=== PATIENT | male | born 1940 | race Caucasian/White ===

== ENCOUNTER → 2024-09-30 | Outpatient (CLI) | payer MEDICARE, SELFPAY ==
--- NOTE | 2024-09-30 14:36 | CT_ITS ---
EXAM: CT LUMBAR SPINE WITH INTRAVENOUS CONTRAST CLINICAL INDICATION: NUMBNESS LOWER EXTREMITIES POST RECENT INJECTION TECHNIQUE: Helically acquired images were obtained of the lumbar spine with intravenous contrast. 2D reformats were reviewed. This CT exam was performed using one or more of the following dose reduction techniques: automated exposure control, adjustment of the mA and/or kV according to patient size, and/or use of iterative reconstruction technique. CONTRAST: IV 100mL Isovue-370 RADIATION DOSE: CTDIvol = 20.25 mGy, DLP = 699.94 mGy-cm COMPARISON: No relevant prior studies available. FINDINGS: VERTEBRAE: Severe burst type fracture of L2 which appears old and healed. There is significant narrowing of the spinal canal at this level from approximately 1.2 cm down to approximately 7 mm.. No acute fracture. No traumatic subluxation. No discrete lytic or blastic abnormality. Normal alignment. Normal curvature. Diffuse demineralization. DISCS/SPINAL CANAL/NEURAL FORAMINA: Chronic degenerative disc disease at L2-L3 with vacuum phenomenon. Other discs show normal height. T12-L1 is unremarkable. L1-L2 shows mild loss of disc height. Bilateral moderate neural foraminal narrowing. L2-L3 shows severe central canal stenosis. There is severe bilateral neural foraminal narrowing worse on the right. L3-L4 shows a broad disc bulge. Moderate central canal stenosis. Moderate bilateral neural foraminal narrowing. L4-L5 shows mild to moderate bilateral neural foraminal narrowing. L5-S1 is unremarkable. VASCULATURE: Marked calcified plaque of the aorta. Marked narrowing of the aortic lumen at the level of the renal arteries. Severe calcified plaque and narrowing of the iliac arteries. LYMPH NODES: Unremarkable. No retroperitoneal adenopathy. CT/Spine Lumbar WITH Contrast IMPRESSION: No definite acute abnormality. Old fracture at L2. Multilevel spinal stenosis and neural foraminal narrowing. Findings most pronounced at L2-L3. Electronically Signed: Mingo Wakefield MD at 17:00 EST ,
[2024-09-30 15:23] LABS: CREATININE FINGERSTICK < 1.0 mg/dL (0.70-1.30); EGFR FINGERSTICK > 60.0000 mL/min (>60)
== END | disposition home or self-care (01) ==
PROVIDERS: PCP Internal Medicine; Referring Provider Clinical Nurse Specialist Adult Health; Visit Provider Clinical Nurse Specialist Adult Health
DX: R20.0 Anesthesia of skin (principal)
CPT/HCPCS: 72132; Q9967

== ENCOUNTER 2024-11-07 10:18 | Emergency (ER) | payer MEDICARE, SELFPAY ==
[2024-11-07 10:19] VITALS: BP 134/89; PULSE 84; RESP 18; TEMP 36.4; O2SAT 98
[2024-11-07 10:21] VITALS: BMI 27.8
--- NOTE | 2024-11-07 10:58 | CT_ITS ---
STUDY: CT BRAIN WITHOUT CONTRAST REASON FOR EXAM: Male, 84 years old. Weakness, falls, lower extremity weakness RADIATION DOSAGE (If Supplied By Facility): CTDIvol = ( 44.99 ) mGy, DLP = ( 829.85 ) mGycm TECHNIQUE: Transaxial CT imaging of the brain was performed without administration of intravenous contrast material. Individualized dose optimization techniques were used for this CT. COMPARISON: No relevant priors. FINDINGS: Normal soft tissue structures. Normal calvarium. There is moderate cerebral atrophy with widening of the extra-axial spaces and ventricular dilatation. There are areas of decreased attenuation within the white matter tracts of the supratentorial brain, consistent with microvascular disease changes. Focal encephalomalacia in the posterior aspect of the right posterior occipital lobe. Normal basal ganglia and thalami. Normal brainstem. Normal cerebellum. There is no intracranial hemorrhage. There are no findings of an acute ischemic infarction. Atherosclerotic calcification of the vertebral arteries as well as the cavernous portions of the internal carotid arteries bilaterally. Normal visualized paranasal sinuses. CT/Brain/Head without Contrast IMPRESSION: Chronic involutional changes of the brain. Electronically Signed: Jacoby Williamson MD at 11:39 EST ,
[2024-11-07] MEDS: fentaNYL 100 MCG/2 ML Ampul 50 MCG IV (11:14)
--- NOTE | 2024-11-07 11:19 | ADU_ITS ---
Reason For Study: BLE PAIN Right Velocities Left Velocities Ext. Iliac Artery, dist = 175.2 cm./sec. Common Femoral Artery, dist = 85.8 cm./sec. Common Femoral Artery, prox = 198.5 cm./sec. Supf. Femoral Artery, prox = 85.8 cm./sec. Supf Femoral Artery, prox = 60.1 cm./sec. Supf. Femoral Artery, mid = 65.0 cm./sec. Supf Femoral Artery, mid = 52.4 cm./sec. Supf. Femoral Artery, dist = 56.4 cm./sec. Supf Femoral Artery, dist. = 45.7 cm./sec. Common Femoral Artery, dist = 85.8 cm./sec. Profunda Femoral Artery = 52.4 cm./sec. Supf. Femoral Artery, prox = 85.8 cm./sec. Popliteal Artery, prox. = 44.5 cm./sec. Supf. Femoral Artery, mid = 65.0 cm./sec. Area of acoustic shadowing noted at prox mid POP ASupf. Femoral Artery, dist = 56.4 cm./sec. Popliteal Artery, prox/mid = 245.3 cm./sec. Profunda Femoral Artery = 73.6 cm./sec. Popliteal Artery, mid = 54.2 cm./sec. Popliteal Artery, proximal, = 56.4 cm./sec. Popliteal Artery, dist = 50.2 cm./sec. Area of Heterogenous irregular plaque noted at Post. Tibial Artery, prox = 41.6 cm./sec. prox/mid POP A Post. Tibial Artery, mid = 40.4 cm./sec. Prox/Mid POP A = 301.7 cm/sec. Post. Tibial Artery, dist = 35.5 cm./sec. Popliteal Artery, mid = 41.8 cm./sec. Peroneal Artery, mid = 18.3 cm./sec. Popliteal Artery, distal = 41.6 cm./sec. Unable to visualize flow in prox and dist Feliciano A Post. Tibial Artery, prox = 40.5 cm./sec. Ant. Tibial Artery, prox = 40.0 cm./sec. Post Tibial Artery, mid = 47.1 cm./sec. Ant. Tibial Artery, mid = 32.2 cm./sec. Post Tibial Artery, dist. = 33.0 cm./sec. Ant. Tibial Artery, dist = 47.0 cm./sec. Unable to visualize prox and dist Feliciano A Rt to LT Fem to Fem BPG noted. Prox anastomosis Peroneal Artery, mid = 62.3 cm./sec. appears to be Rt Dist Iliac A / Prox STRIP PICKER. Distal Ant.Tibial Artery, prox = 25.4 cm./sec. anastomosis appears to be LT STRIP PICKER/Prox SFA. Unable Ant Tibial Artery, mid = 65.1 cm./sec. to visualize flow in Lt Distal Ilac A Ant. Tibial Artery, distal = 12.2 cm./sec. Prox Anastomosis = 156.0 cm/sec Prox Graft = 145.7 cm/sec Mid Graft = 88.6 cm/sec Dist Graft = 78.3 cm/sec Dist Anastomosis = 130.1 cm/sec. Procedure The exam was diagnostic. Exam performed portable in ED. Comments Preliminary report given to [facility] and Dr. Almanza. VL/US Art Duplex Bilat Lower Ext Interpretation Summary Patent left to right femoral-femoral bypass with normal velocities and no evide nce of stenosis. Right popliteal artery with >75% stenosis Left popliteal artery with >75% stenosis. Ordering Physician: Marly Almanza Referring Physician: Phil Campuzano Performed By: Krish Cabrera, RVT
--- NOTE | 2024-11-07 11:19 | ART_ITS ---
Reason For Study: Leg Pain Procedure A bilateral lower extremity continuous wave Doppler with analog waveform analysis and ankle brachial indexes. Left Segmental Pressures Left brachial= 121mmHg. Left posterior tibial artery = 95mmHg. Left dorsalis pedis artery = 83mmHg. Left digit = 56 mmHg. Right Segmental Pressures Right posterior tibial artery = 117mmHg. Right dorsalis pedis artery = 116mmHg. Right digit = 74 mmHg. Indices The right ankle brachial index by the posterior tibial artery is 0.97. The right ankle brachial index by the dorsalis pedis is 0.96. The right digital-brachial index is 0.61. The left ankle brachial index by the posterior tibial artery is 0.79. The left ankle brachial index by the dorsalis pedis is 0.69. The left digital-brachial index is 0.46. VL/Ankle Brachial Index Interpretation Summary Right BERNA 0.97, mild arterial insufficiency. Doppler/PVR waveforms of the right ankle mildly diminished at rest. Left BERNA 0.79, moderate arterial insufficiency. Doppler/PVR waveforms of the le ft ankle moderately diminished at rest. Ordering Physician: Marly Almanza Referring Physician: Phil Campuzano Performed By: Jaz Box RDCS/RVT
--- NOTE | 2024-11-07 11:25 | EX.ED.DYSGE1 ---
HPI History of Present Illness Chief Complaint: Lower Extremity Injury Informant: patient and family Narrative Narrative: Patient is an 84-year-old male with history of peripheral arterial disease, AAA status post presenter, brain aneurysm status post clipping, CABG on chronic aspirin and Plavix therapy as well as spinal stenosis and chronic back pain who follows with [facility] as well as Dr. Whitaker. He is presenting today for worsening leg pain and debility. His daughter notes that over the past 3 months he has went from ambulating without any assistance to needing a walker full-time for ambulation and now had a fall. He states that he does not have significant pain when at rest but when he tries to stand he has pretty severe pain in the both of his legs. Describes it more as a burning pain. He has been following with Dr. Zuluaga at [facility]. He had a CT myelogram this month which did show a large calcium deposit occluding the SMA and spine surgery is more concerned that his pain could be vascular in nature. He has a history of bypass to his legs before by Dr. Whitaker in 2018 at [facility]. He is scheduled to have arterial duplex of his legs this coming Sunday in [place]. He is also scheduled to have an epidural injection of his spine via the [facility] on November 17. Patient continues to get weaker and is having increased pain and his daughter called Dr. Whitaker this morning who suggested he come to the ER for evaluation of his symptoms were this severe. He had a fall 2 mornings ago. He states that he was trying to get into the house and his legs just more than gave out. He states it was a gentle fall he did not hit his head. He did bruise his right arm. He called his daughter who helped him get back up. He has urinary frequency but attributes that to drinking a large amount of caffeine. He denies any sensation of incomplete bladder emptying. He does feel that his arms are starting get a little weaker to now. He denies any bowel or bladder incontinence. Patient does live home alone. [facility] Medical History History of broken leg History of kenney History of vascular disease History of skin cancer History of gastroesophageal reflux (GERD) History of osteoarthritis History of high cholesterol History of hypertension History of heart disease History of carpal tunnel syndrome History of cataract History of blood clots History of back problems History of asthma History of arthritis Home Medications ?Medication ?Instructions ?Recorded ?Last Taken ?Type aspirin 81 mg chewable tablet 81 mg PO DAILY 06/12/24 Unknown History (Aspirin Childrens) cholecalciferol (vitamin D3) 50 50 mcg PO DAILY 06/12/24 Unknown History mcg (2,000 unit) capsule clopidogrel 75 mg tablet (Plavix) 75 mg PO DAILY 06/12/24 Unknown History lansoprazole 30 mg capsule,delayed 30 mg PO QDAY 06/12/24 Unknown History release metoprolol succinate 25 mg 25 mg PO QDAY 06/12/24 Unknown History tablet,extended release 24 hr omega 4-rdb-hvb-fish oil 300 1 cap PO DAILY 06/12/24 Unknown History mg-1,000 mg capsule (Fish Oil) paroxetine HCl 40 mg tablet 40 mg PO QDAY 06/12/24 Unknown History rosuvastatin 40 mg tablet 40 mg PO QDAY 06/12/24 Unknown History oxycodone 5 mg tablet 5 mg PO Q6H PRN pain 3 days #12 11/07/24 Unknown Rx tabs Allergy/AdvReac Type Severity Reaction Status Date / Time lisinopril AdvReac Mild Other Verified 11/07/24 10:21 Family History Father Bleeding disorder Brother Cancer Daughter Asthma Arthritis Surgical History H/O heart bypass surgery History of carpal tunnel surgery of left wrist History of AAA (abdominal aortic aneurysm) repair History of brain surgery Social History Smoking Status: Current every day smoker tobacco type: cigarettes how long ago did patient quit smokin-1/2 pack daily smoking since 17 years old alcohol intake: current substance use type: does not use additional social history: pt takes aspirin daily, denies vaping, denies marrijuana use, denies edibles, denies ibuprofen ROS ROS ED Constitutional Constitutional ED: Denies chills or fever(s) Cardiovascular Cardiovascular: Denies chest pain Respiratory/Chest Respiratory/Chest: Denies cough or dyspnea Gastrointestinal Gastrointestinal: Denies abdominal pain, nausea or vomiting Genitourinary Genitourinary ED: Reports urinary frequency; Denies dysuria Musculoskeletal Musculoskeletal: Reports back pain and other Details: bilateral leg pain- worse with standing/ambulation Integumentary Denies rash Neurologic Neurologic: Reports weakness; Denies paresthesias Psychiatric Psychiatric: Denies anxiety Hematologic/Lymphatic Hematologic/Lymphatic: Denies easy bleeding or easy bruising EXAM Physical Exam Const Vital Signs: 11/07/24 10:19 11/07/24 12:18 Temperature 97.6 F L Temperature Source Oral Pulse Rate 84 74 Respiratory Rate 18 18 Blood Pressure 134/89 H 128/72 H Blood Pressure Mean 104 90 Pulse Ox 98 98 Oxygen Delivery Method Room Air Positive well nourished and well developed General Appearance ED: well developed and NAD HEENT Reports moist mucous membranes Eyes PERRL Neck supple Chest Wall inspection of chest normal and palpation of chest normal Resp normal respiratory effort and clear to auscultation bilaterally Cardio regular rate and regular rhythm GI normal to inspection, nondistended, normoactive bowel sounds and non-tender Palpation: Negative for mass Back/Spine no CVA tenderness Thoracic Spine / Upper Back: Negative for thoracic spinal tenderness or paraspinal muscle tenderness Extremity normal to inspection Extremity Narrative: Negative straight leg test bilaterally. 1+ bilateral radial pulses. Will obtain Doppler for lower extremity pulses of the feet. 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 No drift of the upper extremities. Does have some mild difficulty lifting his legs off the bed but is able to hold them. 5/5 strength with dorsi and plantarflexion. Sensorium / Orientation: alert Psych mental status grossly normal Skin no rashes or lesions noted Skin Narrative: Some scattered ecchymosis over the right forearm that is healing MDM MDM MDM Narrative Medical decision making narrative: Patient is evaluated for this ongoing lower extremity pain and progressive debility. This seems like this more subacute is been progressing over the past few months but is gotten to the point that patient is having hard time ambulating now even with a walker and had a fall 2 days ago. I did speak with vascular surgery PA who recommended ABIs and arterial duplex of the lower extremities. She will come by to see the patient. Will also obtain CT of the brain in case this is more of a central process and basic labs in addition CPK and CRP. Given that he had a recent CT myelogram and the progression of symptoms without any cauda equina symptoms including bowel or bladder incontinence or saddle anesthesia I do not think this is cauda equina or epidural abscess. In addition he had a recent CT myelogram and has been following with spinal surgery. Workup largely normal. He is mildly with hemoglobin 11.8 by do not think it is related to his leg pain today. Does not have a leukocytosis. Kidney function is normal. CK is normal and CRP is negative. Arterial duplex shows some stenosis had the bilateral popliteal but no critical stenosis. Patient evaluated by vascular nurse practitioner. She states that he has bilateral biphasic DP pulses with Doppler. Feels that this could be followed up with outpatient and the pain is not likely related to his peripheral vascular disease. Patient did receive 50 mcg of fentanyl with significant improvement of his pain. Is able to stand without pain now and ambulate with only minimal pain. I will be discharged home with a short course of oxycodone. Will continue to follow-up with spine as well as vascular outpatient. Patient and daughter are in agreement with this. He feels safe going home. Is offered admission if he feels that his pain is too debilitating that he is not safe to go home but at this time declines. Is encouraged to return to the emergency room should he have progression or worsening of his symptoms or no longer feels safe at home. Lab Data Attestation: I reviewed the patient's lab results. Labs: Laboratory Results - last 24 hr 11/07/24 11:05 WBC 10.4 RBC 3.85 L Hgb 11.8 L Hct 35.4 L MCV 91.9 MCH 30.6 MCHC 33.3 RDW Std Deviation 51.8 H RDW Coeff of Kaylen 15.6 H Plt Count 340 MPV 9.1 Immature Gran % (Auto) 1.100 H Neut % (Auto) 61.2 Lymph % (Auto) 26.9 Henry % (Auto) 9.8 Eos % (Auto) 0.5 Baso % (Auto) 0.5 Absolute Neuts (auto) 6.4 Absolute Lymphs (auto) 2.80 Nucleated RBC % 0 PT 13.4 INR 1.0 APTT 20.5 L Sodium 139 Potassium 3.8 Chloride 107 Carbon Dioxide 28.0 Anion Gap 4 L BUN 12 Creatinine 0.69 L Est GFR (MDRD) Af Amer 140 Est GFR (MDRD) Non-Af 116 BUN/Creatinine Ratio 17.3 Glucose 81 Calcium 8.8 Total Creatine Kinase 63 C-React Prot Ext Range < 2.90 Radiography Diagnostic Testing: Clinical Impression(s) from Imaging Studies Brain CT 11/07/24 10:58 IMPRESSION: Chronic involutional changes of the brain. Electronically Signed: Jacoby Williamson MD at 11:39 EST , Management Discussion w/another healthcare provider: [employer] Research Manager Discharge Plan Triage Chief Complaint: Lower Extremity Injury ED Provider: Marly Almanza Dx/Rx/DC Orders Clinical Impression: Lower extremity pain, Debility Instructions: ED Pain, Acute, Uncertain Cause, ED Weakness (Uncertain Cause) Prescriptions: New oxycodone 5 mg tablet 5 mg PO Q6H PRN (Reason: pain) 3 Days Qty: 12 0RF No Action metoprolol succinate 25 mg tablet extended release 24 hr 25 mg PO QDAY paroxetine HCl 40 mg tablet 40 mg PO QDAY lansoprazole 30 mg capsule,delayed release(DR/EC) 30 mg PO QDAY rosuvastatin 40 mg tablet 40 mg PO QDAY clopidogrel [Plavix] 75 mg tablet 75 mg PO DAILY cholecalciferol (vitamin D3) 50 mcg (2,000 unit) capsule 50 mcg PO DAILY aspirin [Aspirin Childrens] 81 mg tablet,chewable 81 mg PO DAILY omega 3-tmh-low-fish oil [Fish Oil] 300-1,000 mg capsule 1 cap PO DAILY Primary Care Provider: Phil Campuzano Referrals: Phil Campuzano MD [Primary Care Provider] - Activity Restrictions/Additional Instructions: At this time there is not appear to be any acute occlusion to the blood flow of your legs is causing the pain. Suspect this is coming more from your back. Please continue to follow-up with [facility] as well as vascular surgery. Take stool softeners with the pain medicine prescribed today. If your symptoms worsen you can allow her to care for self please return to the emergency room. Print Language: Dominican Disposition Disposition: Home, Self Care
[2024-11-07 11:27] LABS: Absolute Neutrophil Count 6.4 X10^3/uL (2.0-7.7); Basophil# 0.05 X10^3/uL; Basophil% 0.5 % (0-1); Eosinophil# 0.05 X10^3/uL; Eosinophils% 0.5 % (0-5); Hematocrit 35.4 % (40-54); Hemoglobin 11.8 g/dL (13.0-16.5); Lymphocyte % 26.9 % (19-41); Mean Corp Hgb Conc 33.3 g/dL (32-36); Mean Corpuscular Hgb 30.6 pg (27.0-32.0); Mean Corpuscular Volume 91.9 fL (80-94); Mean Platelet Vol. 9.1 fl (6.2-12.0); Monocyte# 1.02 X10^3/uL; Monocyte% 9.8 % (0-10); NRBC Flagged by Analyzer 0 % (0-5); Neutrophil # 6.37 X10^3/uL (2.7-7.7); Neutrophil % 61.2 % (47-70); Platelet Count 340 K/mm3 (150-450); RBC Distribution Width CV 15.6 % (11.6-14.6); RBC Distribution Width SD 51.8 fl (35.1-43.9); Red Blood Count 3.85 M/mm3 (4.6-6.2); White Blood Count 10.4 K/mm3 (4.4-11.0)
[2024-11-07 11:42] LABS: Prothrombin Time (Protime)PT. 13.4 SECONDS (11.7-14.9)
[2024-11-07 11:48] LABS: Partial Thromboplast Time 20.5 Seconds (24.1-36.2)
[2024-11-07 12:03] LABS: Anion Gap 4 (5-15); BUN 12 mg/dL (7-18); BUN/Creat Ratio 17.3 RATIO (10-20); CRP < 2.90 mg/L (0.0-3.0); Calcium,Total 8.8 mg/dL (8.5-10.1); Chloride 107 mmol/L (98-107); Creatinine, Serum 0.69 mg/dL (0.70-1.30); EST Glomerular Filtration Rate 116 mL/min (>60); Est Glom Filt Rate - Afr Amer 140 mL/min (>60); Glucose 81 mg/dL (74-106); Potassium 3.8 mmol/L (3.5-5.1); Sodium Level 139 mmol/L (136-145)
[2024-11-07 12:18] VITALS: BP 128/72; PULSE 74; RESP 18; O2SAT 98
[2024-11-07 12:31] LABS: CPK Total, Creatine Kinase 63 U/L (39-308)
--- NOTE | 2024-11-07 13:21 | CON.PCM.SX_ITS ---
Assessment & Plan Assessment/Plan (1) PAOD (peripheral arterial occlusive disease): (2) Weakness of both lower extremities: (3) Bilateral lower extremity pain: PLAN: Plan By exam, no signs concerning for acute/subacute ischemia. Arterial duplex was completed in the ER and showed patent fem-fem bypass and some bilateral popliteal and tibial disease. R BERNA was 0.97 and L BERNA was 0.79 with multiphasic waveforms throughout. He has mild to moderate arterial insufficiency at this time which I do not believe is contributing significantly to his current symptoms and can be safely managed on an outpatient basis. Recommend he continue his current medications including DAPT and high-intensity statin and keep outpatient follow-up as scheduled with our office. Discussed with patient and his daughter who were content with this plan. HPI Consult Data Date of Consult: 11/07/24 HPI Narrative HPI Narrative: AMANDA STEVENSON, is a 84 M who presents to the [facility] ER with complaint of progressively worsened bilateral lower extremity weakness, bilateral lower extremity pain with weight-bearing, and cool feet bilaterally. His daughter is at bedside and helps to supplement history. She reports that since August he seems to be getting progressively weaker. He has gone from ambulating without assistance to requiring a walker and unfortunately has had some falls. He does have associated chronic back pain and a known history of significant spine disease being evaluated and managed by Dr. Sutton at [facility]. His daughter reports that Dr. Sutton had concerns for vascular disease contributing to his weakness given his history and was planning to evaluate this prior to proceeding with spine interventions; he is scheduled for an epidural injection at the beginning of November. He also has a significant vascular surgical history. In 2017, he had L femoral endarterectomy, R femoral endarterectomy, fem-fem bypass, L femoral thrombectomy, and L 4 compartment fasciotomies due to acute L femoral thrombosis superimposed upon severe chronic PAD at that time. He has not had vascular follow-up for the last 5 years or so. [facility] Medical History History of broken leg History of kenney History of vascular disease History of skin cancer History of gastroesophageal reflux (GERD) History of osteoarthritis History of high cholesterol History of hypertension History of heart disease History of carpal tunnel syndrome History of cataract History of blood clots History of back problems History of asthma History of arthritis Home Medications ?Medication ?Instructions ?Recorded ?Last Taken ?Type aspirin 81 mg chewable tablet 81 mg PO DAILY 06/12/24 Unknown History (Aspirin Childrens) cholecalciferol (vitamin D3) 50 50 mcg PO DAILY 06/12/24 Unknown History mcg (2,000 unit) capsule clopidogrel 75 mg tablet (Plavix) 75 mg PO DAILY 06/12/24 Unknown History lansoprazole 30 mg capsule,delayed 30 mg PO QDAY 06/12/24 Unknown History release metoprolol succinate 25 mg 25 mg PO QDAY 06/12/24 Unknown History tablet,extended release 24 hr omega 0-wva-rvl-fish oil 300 1 cap PO DAILY 06/12/24 Unknown History mg-1,000 mg capsule (Fish Oil) paroxetine HCl 40 mg tablet 40 mg PO QDAY 06/12/24 Unknown History rosuvastatin 40 mg tablet 40 mg PO QDAY 06/12/24 Unknown History Allergy/AdvReac Type Severity Reaction Status Date / Time lisinopril AdvReac Mild Other Verified 11/07/24 10:21 Family History Father Bleeding disorder Brother Cancer Daughter Asthma Arthritis Surgical History H/O heart bypass surgery History of carpal tunnel surgery of left wrist History of AAA (abdominal aortic aneurysm) repair History of brain surgery Social History Smoking Status: Current every day smoker tobacco type: cigarettes how long ago did patient quit smokin-1/2 pack daily smoking since 17 years old alcohol intake: current substance use type: does not use additional social history: pt takes aspirin daily, denies vaping, denies marrijuana use, denies edibles, denies ibuprofen Physical Exam Const alert, oriented x3 and no apparent distress General Appearance: cooperative and comfortable HEENT normocephalic, head/scalp atraumatic, hearing grossly normal bilaterally, external ears normal and external nose normal Nose: external nose normal Eyes General Eye: normal appearance of both eyes Neck General: normal visual inspection and trachea midline Resp normal respiratory effort, no retractions and no use of accessory muscles Effort and Inspection: able to speak in complete sentences Cardio regular rate and regular rhythm Extremity Extremity Narrative: R DP/PT pulses multiphasic, L PT multiphasic, L DP strong monophasic Bilateral toes are cool but appropriately pink, no cyanotic discoloration Skin no rashes or lesions noted Trauma: no lacerations or abrasions Neuro CN's II-XII intact bilaterally and moves all extremities Speech: speech normal Psych mental status grossly normal Appearance: grossly normal Attitude: calm and engaged Activity / Motor Behavior: appropriate eye contact Speech: normal speech Mood & Affect: euthymic mood Judgement: judgement good Lab / Micro Data 11/07/24 11:05 11/07/24 11:05 Labs: Laboratory Results - last 24 hr 11/07/24 11:05: WBC 10.4, RBC 3.85 L, Hgb 11.8 L, Hct 35.4 L, MCV 91.9, MCH 30.6, MCHC 33.3, RDW Std Deviation 51.8 H, RDW Coeff of Kaylen 15.6 H, Plt Count 340, MPV 9.1, Immature Gran % (Auto) 1.100 H, Neut % (Auto) 61.2, Lymph % (Auto) 26.9, [place] % (Auto) 9.8, Eos % (Auto) 0.5, Baso % (Auto) 0.5, Absolute Neuts (auto) 6.4, Absolute Lymphs (auto) 2.80, Nucleated RBC % 0, PT 13.4, INR 1.0, A PTT 20.5 L, Sodium 139, Potassium 3.8, Chloride 107, Carbon Dioxide 28.0, Anion Gap 4 L, BUN 12, Creatinine 0.69 L, Est GFR (MDRD) Af Amer 140, Est GFR (MDRD) Non-Af 116, BUN/Creatinine Ratio 17.3, Glucose 81, Calcium 8.8, Total Creatine Kinase 63, C-React Prot Ext Range < 2.90 Imaging Radiology Impression Brain CT 11/07/24 10:58 IMPRESSION: Chronic involutional changes of the brain. Electronically Signed: Jacoby Williamson MD at 11:39 EST , Charges/Coding Visit Charges Inpatient E&M: 93305 Init Hosp L1
[2024-11-07 14:17] VITALS: BP 145/67; PULSE 74; RESP 18; TEMP 36.8; O2SAT 95
== END 2024-11-07 14:19 | disposition home or self-care (01) ==
PROVIDERS: Emergency Provider Emergency Medicine; PCP Internal Medicine; Visit Provider Emergency Medicine
DX: M79.604 Pain in right leg (principal); K21.9 Gastro-esophageal reflux disease without esophagitis; Z79.02 Long term (current) use of antithrombotics/antiplatelets; F17.210 Nicotine dependence, cigarettes, uncomplicated; E78.00 Pure hypercholesterolemia, unspecified; Z79.82 Long term (current) use of aspirin; I10 Essential (primary) hypertension; M79.605 Pain in left leg; R53.81 Other malaise; R29.898 Other symptoms and signs involving the musculoskeletal system; Z95.1 Presence of aortocoronary bypass graft; Z79.899 Other long term (current) drug therapy; I73.9 Peripheral vascular disease, unspecified
CPT/HCPCS: 70450; 80048; 82550; 85025; 85610; 85730; 86140; 93922; 93925; 96374; 99283; A4216

== ENCOUNTER 2025-01-29 09:37 | Outpatient (CLI) | payer MEDICARE, SELFPAY ==
[2025-01-29 09:57] VITALS: TEMP 36.1; BMI 27.6
[2025-01-29] MEDS: Zoledronic Acid 5 MG 100 ML 300 MG IV (10:13)
[2025-01-29 10:51] VITALS: BP 128/67; PULSE 71; RESP 16; TEMP 36.6; O2SAT 99
== END 2025-01-29 23:59 | disposition home or self-care (01) ==
LOC: MEDOUTP 09:38
PROVIDERS: PCP Internal Medicine; Referring Provider Internal Medicine Endocrinology, Diabetes & Metabolism; Visit Provider Internal Medicine Endocrinology, Diabetes & Metabolism
DX: M81.0 Age-related osteoporosis without current pathological fracture (principal)
CPT/HCPCS: 96365; A4216; J3489

== ENCOUNTER 2025-05-19 17:42 | Inpatient (IN) | payer MEDICARE, SELFPAY ==
[2025-05-19 17:53] VITALS: BP 148/65; PULSE 74; RESP 17; TEMP 36.4; O2SAT 98
[2025-05-19 17:54] VITALS: BMI 27.8
--- NOTE | 2025-05-19 19:56 | HP.PCM_ITS ---
HPI - General General Date of Admission: 05/19/25 Date of Service: 05/20/25 Chief Complaint: Here for rehabilitation. HPI Narrative AMANDA STEVENSON, is a 84 Male who presents with followin05/12/2025 Admit [facility]. 05/12/2025 TAVR via left carotid artery cutdown. Postoperative echo normal functioning bioprosthetic valve with mean gradient of 10mm HG. Continue Aspirin, Plavix. Plan Echo in 4 weeks. 05/17/2025 Neurology signed off for left sided weakness. Low suspicion for TIA/stroke with unremarkable imaging. Prior history left weakness, back surgery February 2025. MRI unable 2/2 clips in brain. Continue Aspirin, Plavix, Statin. PT/OT. 05/18/2025 PT/OT rehab. 05/19/2025 Admit to TCU with debility, here fo rehabilitation, strengthening, prior to discharge home alone. [facility] Medical History Vitamin D deficiency Osteoporosis Murmur Carpal tunnel syndrome History of broken leg History of kenney History of vascular disease History of skin cancer History of gastroesophageal reflux (GERD) History of osteoarthritis History of high cholesterol History of hypertension History of heart disease History of carpal tunnel syndrome History of cataract History of blood clots History of back problems History of asthma History of arthritis Home Medications ?Medication ?Instructions ?Recorded ?Last Taken ?Type aspirin 81 mg chewable tablet 81 mg PO DAILY heart hea lth 06/12/24 05/19/25 History (Aspirin Childrens) cholecalciferol (vitamin D3) 50 100 mcg PO DAILY suppl ement 06/12/24 Unknown History mcg (2,000 unit) capsule clopidogrel 75 mg tablet (Plavix) 75 mg PO QHS Blood t hinner 06/12/24 Unknown History lansoprazole 30 mg capsule,delayed 30 mg PO QDAY GERD 06/12/24 Unknown History release metoprolol succinate 25 mg 25 mg PO QDAY BP 06/12/24 U nknown History tablet,extended release 24 hr omega 7-eff-uzm-fish oil 300 1 cap PO DAILY supplement 06/12/24 Unknown History mg-1,000 mg capsule (Fish Oil) rosuvastatin 40 mg tablet 40 mg PO QDAY cholesterol Unknown History paroxetine HCl 10 mg tablet 10 mg PO QDAY Depression 0 11/13/24 05/19/25 History paroxetine HCl 40 mg tablet 40 mg PO QDAY Depression 0 01/08/25 05/19/25 History vit C 250 mg-vit E 90 mg-zinc 40 1 tab PO BID suppleme nt 01/08/25 Unknown History mg-copper 1 [id number]-qcripd capsule (PreserVision AREDS-2) Allergy/AdvReac Type Severity Reaction Status Date / Time nickel Allergy Severe Rash Verified 01/29/25 09:56 lisinopril AdvReac Mild Other Verified 01/29/25 09:56 Family History Father Bleeding disorder Brother Cancer Daughter Asthma Arthritis Surgical History H/O heart bypass surgery History of carpal tunnel surgery of left wrist History of AAA (abdominal aortic aneurysm) repair History of brain surgery Social History (Updated 05/19/25 @ 20:[address] Sarabjit Cross MD) household members: none Smoking Status: Current every day smoker tobacco type: cigarettes how long ago did patient quit smokin-1/2 pack daily smoking since 17 years old alcohol intake: current substance use type: does not use additional social history: pt takes aspirin daily, denies vaping, denies marrijuana use, denies edibles, denies ibuprofen ROS Constitutional Constitutional: Reports weakness; Denies chills, fever(s) or weight gain ENT HEENT: Denies headache(s), nasal congestion or nasal discharge Cardiovascular Cardiovascular: Denies chest pain or palpitations Respiratory/Chest Respiratory/Chest: Denies cough, excessive phlegm production or shortness of breath with exertion Gastrointestinal Gastrointestinal: Denies abdominal pain, nausea or vomiting Genitourinary Genitourinary: Denies dysuria Musculoskeletal Musculoskeletal: Denies joint pain or joint swelling Integumentary Integumentary: Denies rash or wounds Neurologic Neurologic: Denies focal weakness, numbness or tingling Psychiatric Psychiatric: Denies anxiety, auditory hallucinations, depression, homicidal ideation or suicidal ideation Vital Signs Vital Signs Vital Signs: 05/19/25 17:53 05/19/25 18:54 Temperature 97.6 F L Temperature Source Temporal Pulse Rate 74 Pulse Rhythm Regular Pulse Strength Normal (2+) Respiratory Rate 17 Respiratory Effort Normal Non-Labored Respiratory Depth Normal Respiratory Pattern Normal Blood Pressure 148/65 H Blood Pressure Mean 92 Blood Pressure Source Monitor Blood Pressure Position Sitting Blood Pressure Location Right Arm Pulse Ox 98 Oxygen Delivery Method Room Air Room Air Weight Weight: 80.558 kg Body Mass Index (BMI) 27.8 Physical Exam Const alert General Appearance: cooperative HEENT normocephalic Eyes PERRL and EOMs intact bilaterally Neck supple, no JVD and no carotid bruits Resp normal respiratory effort, normal air movement and clear to auscultation bilaterally Cardio regular rate and regular rhythm GI normal to inspection, nondistended, normoactive bowel sounds, non-tender and non-distended Extremity normal capillary refill General Extremity: Negative for edema Skin no rashes or lesions noted Skin Narrative: Left neck incision clean/dry/intact. General Skin Exam: no breakdown Psych affect normal Appearance: appropriate Results Lab / Micro Data 05/20/25 05:25 05/20/25 05:25 Assessment & Plan Assessment/Plan (1) Debility: (2) Severe aortic stenosis: (3) Status post transcatheter aortic valve replacement (TAVR) using bioprosthesis: (4) Left-sided weakness: (5) CAD (coronary artery disease): (6) Vitamin D deficiency: (7) GERD (gastroesophageal reflux disease): (8) Hyperlipidemia: (9) Depression: (10) Osteoporosis: QUALIFIERS: Osteoporosis type: age-related Presence of current pathological fracture: without current pathological fracture Qualified Code(s): M81.0 - Age-related osteoporosis without current pathological fracture (11) Tobacco abuse: (12) Chronic heart failure with preserved ejection fraction (HFpEF): (13) PAOD (peripheral arterial occlusive disease): PLAN: Plan 84 year old male with below past medical history hospitalized for tavr via left carotid artery cutdown 05/12/2025, postoperative course complicated by left sided weakness, stroke ruled out, admitted to TCU with debility, here for rehabilitation, strengthening, prior to * Debility - PT/OT. * Pain - Tylenol 1000mg q6 prn pain (1-10). * Bowel - senna/colace 2 tablets bid, Magnesium citrate 300mL daily prn. * Adult immunization - Administer pneumonia vaccine, covid vaccine, flu vaccine as appropriate. * DVT prophylaxis - Hold, on dual antiplatelet therapy. * s/p tavr - Aspirin 81mg daily, Plavix 75mg daily. * Hyperlipidemia - Atorvastatin 80mg qhs. * Vitamin D deficiency - D3 100mcg daily. * GERD - Lansoprazole 30mg daily. * Hypertension - Metoprolol succinate 25mg daily. * CAD - Metoprolol succinate 25mg daily, Plavix 75mg daily, Aspirin 81mg daily. * Macular degeneration - Healthy Eyes 1 capsule bidcm. * The following psychotropic medication was present on admission: Paxil 50mg daily. Psychotropic medication therapy is indicated for a diagnosis of: Major depression. Based on my clinical evaluation, continuation of the medication is necessary at this time. Gradual dose reduction plan (select one): ____ GDR will be attempted. Will monitor patient symptoms and behaviors in response to GDR. __x__ GRD contraindicated. 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
[2025-05-20 05:45] LABS: Hematocrit 31.9 % (40-54); Hemoglobin 10.4 g/dL (13.0-16.5); Immature Granulocytes Count 0.050 X10^3/uL (0.0-0.0); Mean Corp Hgb Conc 32.6 g/dL (32-36); Mean Corpuscular Volume 88.6 fL (80-94); Mean Platelet Vol. 9.5 fl (6.2-12.0); NRBC Flagged by Analyzer 0 % (0-5); Platelet Count 236 K/mm3 (150-450); RBC Distribution Width CV 15.3 % (11.6-14.6); RBC Distribution Width SD 48.6 fl (35.1-43.9); Red Blood Count 3.60 M/mm3 (4.6-6.2); White Blood Count 9.7 K/mm3 (4.4-11.0)
[2025-05-20 06:21] LABS: Anion Gap 13 (5-15); BUN 15 mg/dL (4-19); BUN/Creat Ratio 17.4 RATIO (10-20); Calcium,Total 9.3 mg/dL (7.6-11.0); Carbon Dioxide 22.1 mmol/L (21.0-32.0); Chloride 103 mmol/L (98-108); Estimated Creatinine Clearance 64.67 ml/min (50-250); Glucose 101 mg/dL (70-99); Potassium 4.3 mmol/L (3.3-5.1)
[2025-05-20] MEDS: Multivitamin (Healthy Eyes) Capsule 1 CAP PO ×2 (09:19→16:56)
[2025-05-20] MEDS: Cholecalciferol (VIT D3) 25 MCG TABLET (1,000 UNITS) 100 MCG PO (09:19)
[2025-05-20] MEDS: Senna/Docusate Sodium 1 Tablet 2 TABLET PO (09:21)
[2025-05-20 09:22] VITALS: PULSE 74
[2025-05-20] MEDS: Metoprolol(XL)Succ 25 MG Tablet PO (09:22)
[2025-05-20] MEDS: Tuberculin,Purif.prot.deriv. 50 TU/ML Vial 0.1 ML ID (09:25)
[2025-05-20 10:30] VITALS: O2SAT 97
--- NOTE | 2025-05-20 12:32 | PHA.CONS_ITS ---
TCU RX Drug Regimen Review Subjective/Objective Subjective/Objective Subjective: TCU Admission. 84 YOM presented to outside hospital for TAVR. Hospitalized for tavr via left carotid artery cutdown 05/12/2025, postoperative course complicated by left sided weakness, stroke ruled out. Admitted to TCU with debility for strengthening and rehabilitation. Objective: Allergies nickel Allergy (Severe, Verified 01/29/25 09:56) Rash lisinopril Adverse Reaction (Mild, Verified 01/29/25 09:56) Other cough Current Medications Generic Name Dose Route Start Last Admin Trade Name Freq PRN Reason Stop Dose Admin Acetaminophen 1,000 mg 05/19/25 20:13 Acetaminophen 500 Mg Tablet PO Q6H PRN PRN Pain Score 1-10 Aspirin 81 mg 05/20/25 08:00 05/20/25 09:19 Aspirin 81 Mg Tab.Chew PO 81 mg BREAKFAST BROOKS Administration Atorvastatin Calcium 80 mg 05/19/25 22:00 05/19/25 20:26 Atorvastatin Calcium 80 Mg Tablet PO 80 mg QHS BROOKS Administration Cholecalciferol 100 mcg 05/20/25 08:00 05/20/25 09:19 Cholecalciferol (Vit D3) 25 Mcg Tablet (1,000 Units) PO 100 mcg DAILYCM BROOKS Administration Clopidogrel Bisulfate 75 mg 05/19/25 22:00 05/19/25 20:26 Clopidogrel Bisulfate 75 Mg Tablet PO 75 mg QHS BROOKS Administration Lansoprazole 30 mg 05/20/25 07:00 05/20/25 06:50 Lansoprazole 15 Mg Capsule.Dr PO 30 mg DAILY@0700 BROOKS Administration Magnesium Citrate 300 ml 05/19/25 20:13 Magnesium Citrate 300 Ml PO DAILY PRN CONSTIPATION Metoprolol Succinate 25 mg 05/20/25 10:00 05/20/25 09:22 Metoprolol(Xl)Succ 25 Mg Tablet PO 25 mg DAILY BROOKS Administration Protocol Multivitamins/Minerals 1 cap 05/20/25 08:00 05/20/25 09:19 Multivitamin (Healthy Eyes) Capsule PO 1 cap BIDCM BROOKS Administration Paroxetine HCl 10 mg 05/20/25 10:00 05/20/25 09:20 Paroxetine 10 Mg Tablet PO 10 mg DAILY BROOKS Administration Paroxetine HCl 40 mg 05/20/25 10:00 05/20/25 09:19 Paroxetine 20 Mg Tablet PO 40 mg DAILY BROOKS Administration Senna/Docusate Sodium 2 tablet 05/19/25 22:00 05/20/25 09:21 Senna/Docusate Sodium 1 Tablet PO 2 tablet BID BROOKS Administration Tuberculin PPD 0.1 ml 05/27/25 10:00 Tuberculin,Purif.Prot.Deriv. 50 Tu/Ml Vial ID 05/27/25 10:01 X1 ONE Problem List Chronic heart failure with preserved ejection fraction (HFpEF) (Acute) Tobacco abuse (Acute) Depression (Acute) Hyperlipidemia (Acute) GERD (gastroesophageal reflux disease) (Acute) CAD (coronary artery disease) (Acute) Left-sided weakness (Acute) Status post transcatheter aortic valve replacement (TAVR) using bioprosthesis (Acute) Severe aortic stenosis (Acute) Osteoporosis (Chronic) Vitamin D deficiency (Chronic) PAOD (peripheral arterial occlusive disease) (Chronic) Vital Signs Temp Pulse Resp BP Pulse Ox O2 Del Method 97.6 F L 74 17 148/65 H 97 Room Air 05/19/25 17:53 05/20/25 09:22 05/19/25 17:53 05/19/25 17:53 05/20/25 10:30 05/20/25 10:30 Oxygen Delivery Method Room Air Weight: 80.558 kg Body Mass Index (BMI) 27.8 Sodium 137 mmol/L (133-145) 05/20/25 05:25 Potassium 4.3 mmol/L (3.3-5.1) 05/20/25 05:25 Chloride 103 mmol/L (98-108) 05/20/25 05:25 Carbon Dioxide 22.1 mmol/L (21.0-32.0) 05/20/25 05:25 Anion Gap 13 (5-15) 05/20/25 05:25 BUN 15 mg/dL (4-19) 05/20/25 05:25 Creatinine 0.88 mg/dL (0.70-1.20) 05/20/25 05:25 Est GFR (MDRD) Non-Af 85 (>60) 05/20/25 05:25 BUN/Creatinine Ratio 17.4 RATIO (10-20) 05/20/25 05:25 Glucose 101 mg/dL (70-99) H 05/20/25 05:25 Assessment/Plan: 1. Pain: acetaminophen 1000mg PO Q6H PRN pain 1-10. No PRN doses given. Please continue to monitor for increased pain and PRN usage.' 2. Bowel: senna/docusate 2T PO BID and magnesium citrate Assessment/Plan for indications treated with psychotropic medications: Medical chart and medication regimen reviewed. The following medication irregularities or issues were identified: 84 year old male with below past medical history hospitalized for tavr via left carotid artery cutdown 05/12/2025, postoperative course complicated by left sided weakness, stroke ruled out, admitted to TCU with debility, here for rehabilitation, strengthening, prior to * Debility - PT/OT. * Pain - Tylenol 1000mg q6 prn pain (1-10). * Bowel - senna/colace 2 tablets bid, Magnesium citrate 300mL daily prn. * Adult immunization - Administer pneumonia vaccine, covid vaccine, flu vaccine as appropriate. * DVT prophylaxis - Hold, on dual antiplatelet therapy. * s/p tavr - Aspirin 81mg daily, Plavix 75mg daily. * Hyperlipidemia - Atorvastatin 80mg qhs. * Vitamin D deficiency - D3 100mcg daily. * GERD - Lansoprazole 30mg daily. * Hypertension - Metoprolol succinate 25mg daily. * CAD - Metoprolol succinate 25mg daily, Plavix 75mg daily, Aspirin 81mg daily. * Macular degeneration - Healthy Eyes 1 capsule bidcm. * The following psychotropic medication was present on admission: Paxil 50mg daily. Psychotropic medication therapy is indicated for a diagnosis of: Major depression. Based on my clinical evaluation, continuation of the medication is necessary at this time. Gradual dose reduction plan (select one): ____ GDR will be attempted. Will monitor patient symptoms and behaviors in response to GDR. __x__ GRD contraindicated. 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
--- NOTE | 2025-05-20 12:32 | PCM.PN.DRR ---
Documented by User: Nisha Lutz 05/20/25 12:44 TCU RX Drug Regimen Review Subjective/Objective Subjective/Objective Subjective: TCU Admission. 84 YOM presented to outside hospital for TAVR. Hospitalized for tavr via left carotid artery cutdown 05/12/2025, postoperative course complicated by left sided weakness, stroke ruled out. Admitted to TCU with debility for strengthening and rehabilitation. Objective: Allergies nickel Allergy (Severe, Verified 01/29/25 09:56) Rash lisinopril Adverse Reaction (Mild, Verified 01/29/25 09:56) Other cough Current Medications Generic Name Dose Route Start Last Admin Trade Name Freq PRN Reason Stop Dose Admin Acetaminophen 1,000 mg 05/19/25 20:13 Acetaminophen 500 Mg Tablet PO Q6H PRN PRN Pain Score 1-10 Aspirin 81 mg 05/20/25 08:00 05/20/25 09:19 Aspirin 81 Mg Tab.Chew PO 81 mg BREAKFAST BROOKS Administration Atorvastatin Calcium 80 mg 05/19/25 22:00 05/19/25 20:26 Atorvastatin Calcium 80 Mg Tablet PO 80 mg QHS BROOKS Administration Cholecalciferol 100 mcg 05/20/25 08:00 05/20/25 09:19 Cholecalciferol (Vit D3) 25 Mcg Tablet (1,000 Units) PO 100 mcg DAILYCM BROOKS Administration Clopidogrel Bisulfate 75 mg 05/19/25 22:00 05/19/25 20:26 Clopidogrel Bisulfate 75 Mg Tablet PO 75 mg QHS BROOKS Administration Lansoprazole 30 mg 05/20/25 07:00 05/20/25 06:50 Lansoprazole 15 Mg Capsule. PO 30 mg DAILY@0700 BROOKS Administration Magnesium Citrate 300 ml 05/19/25 20:13 Magnesium Citrate 300 Ml PO DAILY PRN CONSTIPATION Metoprolol Succinate 25 mg 05/20/25 10:00 05/20/25 09:22 Metoprolol(Xl)Succ 25 Mg Tablet PO 25 mg DAILY BROOKS Administration Protocol Multivitamins/Minerals 1 cap 05/20/25 08:00 05/20/25 09:19 Multivitamin (Healthy Eyes) Capsule PO 1 cap BIDCM BROOKS Administration Paroxetine HCl 10 mg 05/20/25 10:00 05/20/25 09:20 Paroxetine 10 Mg Tablet PO 10 mg DAILY BROOKS Administration Paroxetine HCl 40 mg 05/20/25 10:00 05/20/25 09:19 Paroxetine 20 Mg Tablet PO 40 mg DAILY BROOKS Administration Senna/Docusate Sodium 2 tablet 05/19/25 22:00 05/20/25 09:21 Senna/Docusate Sodium 1 Tablet PO 2 tablet BID BROOKS Administration Tuberculin PPD 0.1 ml 05/27/25 10:00 Tuberculin,Purif.Prot.Deriv. 50 Tu/Ml Vial ID 05/27/25 10:01 X1 ONE Problem List Chronic heart failure with preserved ejection fraction (HFpEF) (Acute) Tobacco abuse (Acute) Depression (Acute) Hyperlipidemia (Acute) GERD (gastroesophageal reflux disease) (Acute) CAD (coronary artery disease) (Acute) Left-sided weakness (Acute) Status post transcatheter aortic valve replacement (TAVR) using bioprosthesis (Acute) Severe aortic stenosis (Acute) Osteoporosis (Chronic) Vitamin D deficiency (Chronic) PAOD (peripheral arterial occlusive disease) (Chronic) Vital Signs Temp Pulse Resp BP Pulse Ox O2 Del Method 97.6 F L 74 17 148/65 H 97 Room Air 05/19/25 17:53 05/20/25 09:22 05/19/25 17:53 05/19/25 17:53 05/20/25 10:30 05/20/25 10:30 Oxygen Delivery Method Room Air Weight: 80.558 kg Body Mass Index (BMI) 27.8 Sodium 137 mmol/L (133-145) 05/20/25 05:25 Potassium 4.3 mmol/L (3.3-5.1) 05/20/25 05:25 Chloride 103 mmol/L (98-108) 05/20/25 05:25 Carbon Dioxide 22.1 mmol/L (21.0-32.0) 05/20/25 05:25 Anion Gap 13 (5-15) 05/20/25 05:25 BUN 15 mg/dL (4-19) 05/20/25 05:25 Creatinine 0.88 mg/dL (0.70-1.20) 05/20/25 05:25 Est GFR (MDRD) Non-Af 85 (>60) 05/20/25 05:25 BUN/Creatinine Ratio 17.4 RATIO (10-20) 05/20/25 05:25 Glucose 101 mg/dL (70-99) H 05/20/25 05:25 Assessment/Plan: 1. Pain: acetaminophen 1000mg PO Q6H PRN pain 1-10. No PRN doses given. Please continue to monitor for increased pain and PRN usage.' 2. Bowel: senna/docusate 2T PO BID and magnesium citrate 300ML PO daily PRN constipation. No PRN doses given. Please continue to monitor for PRN usage and constipation. Last documented bowel movement was 05/19/25. 3. S/P TAVR/CAD/hypertension: aspirin 81mg PO breakfast, clopidogrel 75mg PO daily, metoprolol succinate 25mg PO daily. Please continue to monitor for S/S of bleeding/bruising, hemoglobin (last 10.4g/dL), BP (last 148/65), HR (last 74). 4. Hyperlipidemia: atorvastatin 80mg PO QHS. Please consider ordering a lipid panel as there is no panel in the chart. Thanks. Please continue to monitor for muscle pain. 5. GERD: lansoprazole 30mg PO daily. Please continue to monitor for S/S of GERD and diarrhea ([place]). 6. Macular degeneration/vitamin D deficiency: healthy eyes 1C PO BIDCM and cholecalciferol 100mcg PO daily. Please consider ordering a vitamin D level as there is no level in the chart. Thanks. Assessment/Plan for indications treated with psychotropic medications: 1. Major depression: paroxetine 50mg PO daily. Please see physician note regarding GDR. Monitor for diarrhea, nausea, headache, anxiety or drowsiness, suicidal thoughts or behaviors ([place]), symptoms of bleeding, symptoms of serotonin syndrome (including agitation, confusion, hyperreflexia, rigidity/myoclonus, tremor, tachycardia, tachypnea), sodium levels (last Na = 137mmol/L). Monitor for efficacy including resident symptoms, behaviors and indications of distress. Monitor for tolerability including mental status, cognition, excessive sleepiness, withdrawal or decreased participation in activities and decline in physical functioning. Maximize use of nonpharmacologic/behavioral interventions to facilitate dose reduction or discontinuation as appropriate. Please evaluate the appropriateness of GDR unless contraindicated. If appropriate, GDR should be attempted in 2 separate quarters within the first year of use or admission to TCU. If GDR attempted, monitor resident symptoms/behaviors. Medical chart and medication regimen reviewed. The following medication irregularities or issues were identified: 1. Atorvastatin 80mg PO QHS. Please consider ordering a lipid panel as there is no panel in the chart. Thanks. 2. Cholecalciferol 100mcg PO daily. Please consider ordering a vitamin D level as there is no level in the chart. Thanks. Date Date of Note: 05/20/25 Documented by User: Dr. Sarabjit Cross MD 05/20/25 12:59 TCU RX Drug Regimen Review Provider Comments Provider responsibility Provider Comments to Recommendations by Pharmacy Agree
--- NOTE | 2025-05-20 14:13 | NURSING ---
THERAPY CAME TO THIS NURSE AND STATED THAT PT WAS IN BATHROOM AND GOT A SKIN TEAR IN BETWEEN FIRST FINGER ON RT HAND. ASKED PT AND THERAPY WHAT HAPPENED BOTH REPLIED THEY DIDNT KNOW. CLEANED APPLIED STERI STRIP AND BANDAID. RN AWARE
--- NOTE | 2025-05-20 18:33 | NURSING ---
SEEN PT TRANSFERRING SELF. EDUCATED PT ON USING THE CALL MASON AND WHY. PT STATED OK I KNOW. RN AWARE
[2025-05-21 06:37] LABS: Cholesterol 124 mg/dL (<=200); Low Density Lipoprotein Calc. 57 mg/dL; Triglycerides 99 mg/dL; Very Low Density Lipoprotein 20 mg/dL (5-40); Vitamin D,25 Hydroxy 29.2 ng/mL (30-100); cholesterol:hdl ratio screen 2.61
[2025-05-21 08:12] VITALS: PULSE 74
[2025-05-21] MEDS: Metoprolol(XL)Succ 25 MG Tablet PO (08:12)
[2025-05-21] MEDS: Multivitamin (Healthy Eyes) Capsule 1 CAP PO ×2 (08:13→17:35)
[2025-05-21] MEDS: Cholecalciferol (VIT D3) 25 MCG TABLET (1,000 UNITS) 100 MCG PO (08:13)
[2025-05-21 08:16] VITALS: BP 110/62; PULSE 74; RESP 16; TEMP 36.3; O2SAT 95
--- NOTE | 2025-05-21 08:49 | NURSING ---
Desktop Architect Note; Activity Asset: Frank García prefers to be called Olvin. Olvin is independent in his choice of daily activities. He uses his phone daily for YouTube, movies, and games. He welcomes the replacer and therapy dog when available. Staff will remind him weekly of daily and respect his right to say no.
--- NOTE | 2025-05-21 16:27 | CASEMGMT ---
Social Work SW met with pt and dgt to complete initial assessment and introduced self and role of SW.? Contacts were verified.? Pt confirmed code status as DNRCC.? Pt?s advance directives are on file at [facility]. Educated pt to [employer] benefit with NRD and that continued stay is not guaranteed with each review.? Pt?s goal is to return home alone. Pt's dgt lives 2 miles away and visits pt daily and assists as needed. SW will continue to follow for DC planning. OSIRIS Jorgensen
[2025-05-22 07:40] VITALS: O2SAT 95
[2025-05-22 08:15] VITALS: PULSE 82
[2025-05-22] MEDS: Metoprolol(XL)Succ 25 MG Tablet PO (08:15)
[2025-05-22] MEDS: Multivitamin (Healthy Eyes) Capsule 1 CAP PO ×2 (08:15→17:03)
[2025-05-22] MEDS: Cholecalciferol (VIT D3) 25 MCG TABLET (1,000 UNITS) 100 MCG PO (08:16)
[2025-05-22 08:20] VITALS: BP 118/62; PULSE 82; RESP 16; TEMP 36.4; O2SAT 93
[2025-05-22 22:00] VITALS: PULSE 74; RESP 16; O2SAT 96
[2025-05-23 07:35] VITALS: PULSE 72; RESP 16; O2SAT 95
[2025-05-23] MEDS: Cholecalciferol (VIT D3) 25 MCG TABLET (1,000 UNITS) 100 MCG PO (08:39)
[2025-05-23] MEDS: Multivitamin (Healthy Eyes) Capsule 1 CAP PO ×2 (08:39→16:56)
[2025-05-23 08:43] VITALS: BP 105/53; PULSE 71
[2025-05-23] MEDS: Metoprolol(XL)Succ 25 MG Tablet PO (08:43)
[2025-05-23 08:47] VITALS: BP 105/53; PULSE 71; RESP 18; TEMP 36.2; O2SAT 97
[2025-05-24] MEDS: Multivitamin (Healthy Eyes) Capsule 1 CAP PO ×2 (07:55→16:48)
[2025-05-24] MEDS: Cholecalciferol (VIT D3) 25 MCG TABLET (1,000 UNITS) 100 MCG PO (07:56)
[2025-05-24 07:59] VITALS: BP 132/66; PULSE 77
[2025-05-24] MEDS: Metoprolol(XL)Succ 25 MG Tablet PO (07:59)
[2025-05-24 08:05] VITALS: BP 132/66; PULSE 77; RESP 18; TEMP 36.4; O2SAT 96
[2025-05-24 15:20] VITALS: PULSE 66; RESP 18; O2SAT 97
--- NOTE | 2025-05-24 21:37 | NURSING ---
Consulted Dr. Cross via telephone regarding patient's impulsive behaviors and self-transferring after several verbal warnings and education regarding fall risks. Per Dr. Cross, new order for alarms. Telephone order read back and verified.
[2025-05-25] MEDS: Multivitamin (Healthy Eyes) Capsule 1 CAP PO ×2 (08:12→17:17)
[2025-05-25 08:13] VITALS: PULSE 76
[2025-05-25] MEDS: Metoprolol(XL)Succ 25 MG Tablet PO (08:13)
[2025-05-25] MEDS: Cholecalciferol (VIT D3) 25 MCG TABLET (1,000 UNITS) 100 MCG PO (08:13)
--- NOTE | 2025-05-25 08:54 | NURSING ---
Offered covid vaccine, VIS provided. Resident declines.
[2025-05-25 09:52] VITALS: BP 112/67; PULSE 76; RESP 18; TEMP 36.4; O2SAT 96
--- NOTE | 2025-05-25 16:02 | CASEMGMT ---
Social Work SW completed BIMS (09/28) and PHQ-2 () for MDS assessment. john devi GAS FITTER APPRENTICE INTERMEDIATE MANAGER
[2025-05-26] MEDS: Cholecalciferol (VIT D3) 25 MCG TABLET (1,000 UNITS) 100 MCG PO (08:00)
[2025-05-26] MEDS: Multivitamin (Healthy Eyes) Capsule 1 CAP PO ×2 (08:00→17:17)
[2025-05-26 08:01] VITALS: PULSE 75
[2025-05-26] MEDS: Metoprolol(XL)Succ 25 MG Tablet PO (08:01)
[2025-05-26 09:41] VITALS: BP 135/73; PULSE 75; RESP 18; TEMP 36.2; O2SAT 98
--- NOTE | 2025-05-26 14:43 | CASEMGMT ---
Social Work Insurance issued LCD 05/28, DC 05/29 SW spoke with pt and dtr at bedside. SW provided NOMNC to pt and educated to appeal rights. Pt verbalized understanding and denied appeal. Pt is agreeable to DC. SW offered HHC vs OP therapy. pt used [facility] prior and pt/dtr prefer to start with them again. SW agreed to coordinate. Pt denied DME needs. Dtr to transport. - [facility] Plan: DC home alone 05/29, [facility] Arely Diaz MATERIALS SCHEDULER SCUBA DIVER
[2025-05-26 16:39] VITALS: BMI 27.5
--- NOTE | 2025-05-26 20:13 | DS.PCM_ITS ---
Providers Date of Admission: 05/19/25 Primary Care Physician: Dr. Phil Campuzano MD Reason For Visit: AORTIC VALCE STENOSIS L SIDE WEAKNESS Diagnosis Discharge Diagnosis (1) Debility: Status: Inactive Code(s): R53.81 - Other malaise (2) Severe aortic stenosis: Status: Acute Code(s): I35.0 - Nonrheumatic aortic (valve) stenosis (3) Status post transcatheter aortic valve replacement (TAVR) using bioprosthesis: Status: Acute Code(s): Z95.3 - Presence of xenogenic heart valve (4) Left-sided weakness: Status: Acute Code(s): R53.1 - Weakness (5) CAD (coronary artery disease): Status: Acute Code(s): I25.10 - Atherosclerotic heart disease of [place] coronary artery without angina pectoris (6) Vitamin D deficiency: Status: Chronic Code(s): E55.9 - Vitamin D deficiency, unspecified (7) GERD (gastroesophageal reflux disease): Status: Acute Code(s): K21.9 - Gastro-esophageal reflux disease without esophagitis (8) Hyperlipidemia: Status: Acute Code(s): E78.5 - Hyperlipidemia, unspecified (9) Depression: Status: Acute Code(s): F32.A - Depression, unspecified (10) Osteoporosis: Status: Chronic Code(s): M81.0 - Age-related osteoporosis without current pathological fracture Qualifiers: Osteoporosis type: age-related Presence of current pathological fracture: without current pathological fracture Qualified Code(s): M81.0 - Age- related osteoporosis without current pathological fracture (11) Tobacco abuse: Status: Acute Code(s): Z72.0 - Tobacco use (12) Chronic heart failure with preserved ejection fraction (HFpEF): Status: Acute Code(s): I50.32 - Chronic diastolic (congestive) heart failure (13) PAOD (peripheral arterial occlusive disease): Status: Chronic Code(s): I77.9 - Disorder of arteries and arterioles, unspecified Plan 84 year old male with below past medical history hospitalized for tavr via left carotid artery cutdown 05/12/2025, postoperative course complicated by left sided weakness, stroke ruled out, admitted to TCU with debility, here for rehabilitation, strengthening, prior to * Debility - PT/OT. * Pain - Tylenol 1000mg q6 prn pain (1-10). * Bowel - senna/colace 2 tablets bid, Magnesium citrate 300mL daily prn. * Adult immunization - Administer pneumonia vaccine, covid vaccine, flu vaccine as appropriate. * DVT prophylaxis - Hold, on dual antiplatelet therapy. * s/p tavr - Aspirin 81mg daily, Plavix 75mg daily. * Hyperlipidemia - Atorvastatin 80mg qhs. * Vitamin D deficiency - D3 100mcg daily. * GERD - Lansoprazole 30mg daily. * Hypertension - Metoprolol succinate 25mg daily. * CAD - Metoprolol succinate 25mg daily, Plavix 75mg daily, Aspirin 81mg daily. * Macular degeneration - Healthy Eyes 1 capsule bidcm. * The following psychotropic medication was present on admission: Paxil 50mg daily. Psychotropic medication therapy is indicated for a diagnosis of: Major depression. Based on my clinical evaluation, continuation of the medication is necessary at this time. Gradual dose reduction plan (select one): ____ GDR will be attempted. Will monitor patient symptoms and behaviors in response to GDR. __x__ GRD contraindicated. Reason contraindicated: stable chronic halfway use. Medications at Discharge Home Medications aspirin 81 mg chewable tablet (Aspirin Childrens) 81 mg PO DAILY heart health 06/12/24 cholecalciferol (vitamin D3) 50 mcg (2,000 unit) capsule 100 mcg PO DAILY supplement 06/12/24 clopidogrel 75 mg tablet (Plavix) 75 mg PO QHS Blood thinner 06/12/24 lansoprazole 30 mg capsule,delayed release 30 mg PO QDAY GERD 06/12/24 metoprolol succinate 25 mg tablet,extended release 24 hr 25 mg PO QDAY BP 06/12/24 omega 7-ktd-xsa-fish oil 300 mg-1,000 mg capsule (Fish Oil) 1 cap PO DAILY supplement 06/12/24 rosuvastatin 40 mg tablet 40 mg PO QDAY cholesterol 06/12/24 paroxetine HCl 10 mg tablet 10 mg PO QDAY Depression 11/13/24 paroxetine HCl 40 mg tablet 40 mg PO QDAY Depression 01/08/25 vit C 250 mg-vit E 90 mg-zinc 40 mg-copper 1 [id number] capsule (PreserVision AREDS-2) 1 tab PO BID supplement 01/08/25 Hospital Course Operations - (See below.) Procedures None Summary of Care Provided Minutes Spent on Discharge: 35 Hospital Course: 84 year old male with below past medical history hospitalized for tavr via left carotid artery cutdown 05/12/2025, postoperative course complicated by left sided weakness, stroke ruled out, admitted to TCU with debility, here for rehabilitation, strengthening, prior to discharge home alone. Discharge home alone 05/29/2025, [facility] PT. Physical Exam Const alert General Appearance: cooperative HEENT normocephalic Eyes PERRL and EOMs intact bilaterally Neck supple, no JVD and no carotid bruits Resp normal respiratory effort, normal air movement and clear to auscultation bilaterally Cardio regular rate and regular rhythm GI normal to inspection, nondistended, normoactive bowel sounds, non-tender and non-distended Extremity normal capillary refill General Extremity: Negative for edema Skin no rashes or lesions noted Skin Narrative: Left neck incision healed. General Skin Exam: no breakdown Psych affect normal Appearance: appropriate Weight / BMI Weight Weight: 79.651 kg Body Mass Index (BMI) 27.5 ABG / Lab / Microbiology Data 05/20/25 05:25 05/20/25 05:25 D/C Instructions Discharge Activity: Return to Normal Activity, May Shower and Use Walker Weight Bearing Status: Weight bearing as tolerated Call your doctor if you observe: Fever of 101 or Higher, Inability to urinate, Inability to have a bowel movement, Shortness of breath, Dizziness, Fainting spells, Swelling in the ankles, Chest pain and Uncontrolled pain DC O2, CPAP, BIPAP Needs Home O2 Discharge instructions: No Additional Instructions: Discharge home alone 05/29/2025, [facility] PT. Please Follow Up With: Carleen Garcia When: As scheduled. Meaningful Use Info Meaningful Use Meaningful Use Diagnoses (Choose all that apply): None applicable Discharge Plan Admission Admit Date/Time: 05/19/25 17:42 Primary Reason for Your Visit: Debility. Attending Provider: Sarabjit Cross Chi Primary Care Provider: Phil Campuzano Instructions Additional Instructions / Restrictions: Discharge home alone 05/29/2025, [facility] PT. Discharge Orders/Prescriptions Prescriptions: Continued metoprolol succinate 25 mg tablet extended release 24 hr 25 mg PO QDAY lansoprazole 30 mg capsule,delayed release(DR/EC) 30 mg PO QDAY rosuvastatin 40 mg tablet 40 mg PO QDAY clopidogrel [Plavix] 75 mg tablet 75 mg PO QHS cholecalciferol (vitamin D3) 50 mcg (2,000 unit) capsule 100 mcg PO DAILY aspirin [Aspirin Childrens] 81 mg tablet,chewable 81 mg PO DAILY omega 9-dol-buo-fish oil [Fish Oil] 300-1,000 mg capsule 1 cap PO DAILY paroxetine HCl 10 mg tablet 10 mg PO QDAY paroxetine HCl 40 mg tablet 40 mg PO QDAY PreserVision AREDS-2 250-90-40-1 mg capsule 1 tab PO BID Referrals / Follow Up: Joyce Bean APRN-INSULATOR HELPER [Other] - 06/18/25 2:00 pm (30 day TAVR follow-up, echo and labs prior) Echocardiogram [Other] - 06/11/25 12:30 pm (First floor lobby of the [facility] ) Phil Campuzano MD [Primary Care Provider] - Lee Arthur MD [Med Staff - Active Staff] - Disposition Disposition (needs filled in before D/C Order can be placed): Home Health Service
[2025-05-27 05:46] LABS: Hematocrit 30.5 % (40-54); Hemoglobin 10.0 g/dL (13.0-16.5); Immature Granulocytes Count 0.060 X10^3/uL (0.0-0.0); Mean Corp Hgb Conc 32.8 g/dL (32-36); Mean Corpuscular Volume 86.9 fL (80-94); Mean Platelet Vol. 9.3 fl (6.2-12.0); NRBC Flagged by Analyzer 0 % (0-5); Platelet Count 318 K/mm3 (150-450); RBC Distribution Width CV 15.8 % (11.6-14.6); RBC Distribution Width SD 49.1 fl (35.1-43.9); Red Blood Count 3.51 M/mm3 (4.6-6.2); White Blood Count 15.8 K/mm3 (4.4-11.0)
[2025-05-27 06:20] LABS: Anion Gap 11 (5-15); BUN 15 mg/dL (4-19); BUN/Creat Ratio 20.2 RATIO (10-20); Calcium,Total 9.3 mg/dL (7.6-11.0); Carbon Dioxide 22.8 mmol/L (21.0-32.0); Chloride 103 mmol/L (98-108); Estimated Creatinine Clearance 70.78 ml/min (50-250); Glucose 97 mg/dL (70-99); Potassium 3.8 mmol/L (3.3-5.1)
[2025-05-27] MEDS: Cholecalciferol (VIT D3) 25 MCG TABLET (1,000 UNITS) 100 MCG PO (08:09)
[2025-05-27] MEDS: Multivitamin (Healthy Eyes) Capsule 1 CAP PO ×2 (08:09→16:46)
[2025-05-27 08:10] VITALS: BP 113/65; PULSE 81
[2025-05-27] MEDS: Metoprolol(XL)Succ 25 MG Tablet PO (08:10)
[2025-05-27 08:15] VITALS: BP 113/65; PULSE 81; RESP 18; TEMP 36.4; O2SAT 97
--- NOTE | 2025-05-27 09:44 | NURSING ---
Addendum entered by Shmuel Shafer 05/27/25 13:06: PT RETURNED FROM APPOINTMENT AT 1200. NO NEW ORDERS. Original Note: PT LEFT AT 0930 BY WHEEL CHAIR TO SEE . DAUGHTER TAKING.
--- NOTE | 2025-05-27 11:08 | NUR.TO.PHY ---
Unable to reach PCP office to make f/u appt, office closed today.
--- NOTE | 2025-05-27 13:02 | CASEMGMT ---
Social Work IDT met with patient and dtr for care plan meeting. Discussed patient's progress in PT/OT/ST/SN/RD. Confirmed insurance issued DC 05/29. Pt will DC home with [facility] PT. (only discipline offered by that agency and family preference). Denied DME needs. Dtr transporting home. No other needs identified. Arely Diaz DIRECTOR [employer]
[2025-05-27] MEDS: Tuberculin,Purif.prot.deriv. 50 TU/ML Vial 0.1 ML ID (13:39)
[2025-05-27 15:40] VITALS: PULSE 81; RESP 18; O2SAT 97
[2025-05-28 05:52] LABS: Hematocrit 31.0 % (40-54); Hemoglobin 10.1 g/dL (13.0-16.5); Immature Granulocytes Count 0.070 X10^3/uL (0.0-0.0); Mean Corp Hgb Conc 32.6 g/dL (32-36); Mean Corpuscular Volume 88.8 fL (80-94); Mean Platelet Vol. 9.5 fl (6.2-12.0); NRBC Flagged by Analyzer 0 % (0-5); Platelet Count 315 K/mm3 (150-450); RBC Distribution Width CV 15.9 % (11.6-14.6); RBC Distribution Width SD 51.0 fl (35.1-43.9); Red Blood Count 3.49 M/mm3 (4.6-6.2); White Blood Count 14.5 K/mm3 (4.4-11.0)
[2025-05-28] MEDS: Cholecalciferol (VIT D3) 25 MCG TABLET (1,000 UNITS) 100 MCG PO (08:16)
[2025-05-28] MEDS: Multivitamin (Healthy Eyes) Capsule 1 CAP PO ×2 (08:16→17:05)
[2025-05-28 08:18] VITALS: BP 130/58; PULSE 77
[2025-05-28] MEDS: Metoprolol(XL)Succ 25 MG Tablet PO (08:18)
[2025-05-28 08:24] VITALS: BP 130/58; PULSE 77; RESP 18; TEMP 36.8; O2SAT 92
--- NOTE | 2025-05-28 08:54 | NURSING ---
Called to set up PCP appt, the listed physician is retired, the MACHINE CELL TUBER that started in the office quit and they have no provider. They offered to have him seen at the [place] office if he wants. Updated resident and dtr. Dtr to come in and talk with resident and they will update nursing what they decide.
[2025-05-28 13:00] VITALS: PULSE 78; RESP 18; O2SAT 97
[2025-05-29 06:41] VITALS: PULSE 83; RESP 16; O2SAT 94
[2025-05-29 07:53] VITALS: BP 107/66; PULSE 76; RESP 17; TEMP 36.6; O2SAT 95
[2025-05-29] MEDS: Multivitamin (Healthy Eyes) Capsule 1 CAP PO (07:56)
[2025-05-29] MEDS: Cholecalciferol (VIT D3) 25 MCG TABLET (1,000 UNITS) 100 MCG PO (07:56)
[2025-05-29 07:59] VITALS: BP 107/66; PULSE 76
[2025-05-29] MEDS: Metoprolol(XL)Succ 25 MG Tablet PO (07:59)
--- NOTE | 2025-05-29 08:45 | CASEMGMT ---
Social Work SW spoke with pt's dgt who states new PCP has been chosen and appt set for 07/03. Dr. Servin out of [place]. SW notified [facility] who confirmed they are able to accept pt but start of care has not been established yet. [facility] notified that pt will dc home today. OSIRIS Jorgensen
--- NOTE | 2025-06-01 09:15 | MDS.RN ---
Information for the MDS was obtained from review of the clinical record, interview of resident, staff, and direct observation of resident?s care.
== END 2025-05-29 10:40 | disposition home health service (06) | DRG 949 ==
PROVIDERS: Admitting Provider Family Medicine Geriatric Medicine; PCP Internal Medicine; Referring Provider Family Medicine Geriatric Medicine; Visit Provider Family Medicine Geriatric Medicine
DX: Z48.812 Encounter for surgical aftercare following surgery on the circulatory system (principal); I50.32 Chronic diastolic (congestive) heart failure; E55.9 Vitamin D deficiency, unspecified; I11.0 Hypertensive heart disease with heart failure; I73.9 Peripheral vascular disease, unspecified; I35.0 Nonrheumatic aortic (valve) stenosis; F32.9 Major depressive disorder, single episode, unspecified; I25.10 Atherosclerotic heart disease of native coronary artery without angina pectoris; E78.00 Pure hypercholesterolemia, unspecified; F17.210 Nicotine dependence, cigarettes, uncomplicated; K21.9 Gastro-esophageal reflux disease without esophagitis; H35.30 Unspecified macular degeneration; M81.0 Age-related osteoporosis without current pathological fracture; Z79.899 Other long term (current) drug therapy; Z79.02 Long term (current) use of antithrombotics/antiplatelets; Z79.82 Long term (current) use of aspirin; Z95.2 Presence of prosthetic heart valve; R53.1 Weakness
CPT/HCPCS: 36415; 80048; 80061; 82306; 85025; 92507; 92523; 97110; 97116; 97162; 97166; 97530; 97535; 97802

== ENCOUNTER → 2025-10-13 | Outpatient (CLI) | payer MEDICARE, SELFPAY ==
--- NOTE | 2025-10-13 09:04 | ART_ITS ---
Reason For Study Reason For Study: HX Rt to Lt FEM - FEM BPG / PVD Procedure A bilateral lower extremity continuous wave Doppler with analog waveform analysis and ankle brachial indexes. Left Segmental Pressures Left brachial= 112mmHg. Left posterior tibial artery = 86mmHg. Left dorsalis pedis artery = 67mmHg. Left digit = 42 mmHg. The left posterior tibial artery waveforms are biphasic. The left dorsalis pedis waveforms are monophasic. Right Segmental Pressures Right brachial= 109mmHg. Right posterior tibial artery = 80mmHg. Right dorsalis pedis artery = 61mmHg. Right digit = 19 mmHg. The right posterior tibial artery waveforms are biphasic. The right dorsalis pedis waveforms are monophasic. Indices The right ankle brachial index by the posterior tibial artery is 0.71. The right ankle brachial index by the dorsalis pedis is 0.54. The right digital-brachial index is 0.17. The left ankle brachial index by the posterior tibial artery is 0.77. The left ankle brachial index by the dorsalis pedis is 0.60. The left digital-brachial index is 0.38. VL/Ankle Brachial Index Interpretation Summary Right BERNA 0.71, moderate arterial insufficiency. Doppler/PVR waveforms of the r ight ankle moderately diminished at rest. Left BERNA 0.77, moderate arterial insufficiency. Doppler/PVR waveforms of the le ft ankle moderately diminished at rest. Ordering Physician: Wes Whitaker Referring Physician: Jamee Lee Performed By: Krish Cabrera, RVT
--- NOTE | 2025-10-13 09:04 | ADUL_ITS ---
Reason For Study Reason For Study: HX RT to Lt Fem/Fem BPG Right Velocities Left Velocities Ext. Iliac Artery, dist = 187.2 cm./sec. Supf. Femoral Artery, prox = 85.4 cm./sec. Rt To Lt FEM / FEM BPG noted Supf. Femoral Artery, mid = 59.1 cm./sec. Supf. Femoral Artery, dist = 29.6 cm./sec. Prox Anastomosis - 140.3 cm/s Profunda Femoral Artery = 98.6 cm./sec. Prox Graft - 65.8 cm/s Popliteal Artery, proximal, = 60.1 cm./sec. Mid Graft - 74.6 cm/s Popliteal Artery, mid = 229.2 cm./sec. Dist Graft - 55.9 cm/s Popliteal Artery, distal = 31.1 cm./sec. Dist Anastomosis - 87.6 cm/s. Post. Tibial Artery, prox = 33.9 cm./sec. Post Tibial Artery, mid = 44.3 cm./sec. Post Tibial Artery, dist. = 41.5 cm./sec. Peroneal Artery, prox = 17.9 cm./sec. Unable to visualize flow in mid and dist Peroneal Artery. Ant.Tibial Artery, prox = 24.5 cm./sec. Ant Tibial Artery, mid = 26.4 cm./sec. Ant. Tibial Artery, distal = 27.3 cm./sec. Procedure The exam was diagnostic. Exam performed in department. /US Art Duplex Unilat Lower Ext Interpretation Summary Patent right to left femoral-femoral bypass with normal velocities and no evide nce of stenosis. Left popliteal artery with >50% stenosis. Left peroneal artery with no visualized flow mid vessel. Ordering Physician: Wes Whitaker Referring Physician: Jamee Lee Performed By: Krish Cabrera, RVT
--- NOTE | 2025-10-13 09:04 | CDU_ITS ---
Reason For Study Reason For Study: Rt ICA Stenosis/Occlusion Rt. Velocities/BP Lt. Velocities/BP Prox CCA 87.6/17.3 cm/sec. Prox CCA 127.1/30.5 cm/sec. Mid CCA 83.2/19.5 cm/sec. Mid CCA 133.7/30.5 cm/sec. Dist CCA 65.6/15.1 cm/sec. Dist CCA 157.8/32.7 cm/sec. Rt ICA appears occluded. Prox ICA 80.9/20.8 cm/sec. Prox ECA 175.3/28.1 cm/sec. Mid ICA 72.3/29.3 cm/sec. Rt. Vert. 72.2/26.1 cm/sec. Dist ICA 73.6/29.3 cm/sec. Lt. ICA/CCA = 0.6. Prox ECA 144.7/21.7 cm/sec. Lt. Vert. 46.5/13.4 cm/sec. Right Extracranial There is heterogeneous, irregular atherosclerotic plaque noted in the right common carotid artery. There is heterogeneous, irregular atherosclerotic plaque noted in the right internal carotid artery. The right internal carotid artery is occluded. There is heterogeneous, irregular atherosclerotic plaque noted in the right external carotid artery. The atherosclerotic plaque causes acoustic shadowing. Antegrade flow is noted in the right vertebral artery. Left Extracranial There is heterogeneous, irregular atherosclerotic plaque noted in the left common carotid artery. There is heterogeneous, irregular atherosclerotic plaque noted in the left internal carotid artery. There is heterogeneous, irregular atherosclerotic plaque noted in the left external carotid artery. Antegrade flow is noted in the left vertebral artery. Procedure Carotid Duplex [id number]. This is a Carotid Duplex examination using B-mode, color flow and specral Doppler. The exam was diagnostic. Exam performed in department. 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 Mild (<50%) stenosis left extracranial internal carotid. Patent and antegrade vertebrals bilaterally. Ordering Physician: Wes Whitaker Referring Physician: Jamee Lee Performed By: Krish Cabrera, RVT
== END | disposition home or self-care (01) ==
LOC: CVS 09:01
PROVIDERS: PCP Internal Medicine Infectious Disease; Referring Provider Surgery Trauma Surgery; Visit Provider Surgery Trauma Surgery
DX: I65.21 Occlusion and stenosis of right carotid artery (principal); I70.222 Atherosclerosis of native arteries of extremities with rest pain, left leg; Z48.812 Encounter for surgical aftercare following surgery on the circulatory system
CPT/HCPCS: 93880; 93922; 93926